=== PATIENT | male | born 1935 | race Hispanic/Latino ===

== ENCOUNTER 2019-09-11 12:37 | Observation (INO) | payer OTHER ==
[2019-09-11] MEDS ORDERED: ceFAZolin/STERILE WATER 2 GM/20 ML SYRINGE IV NR (14:00)
--- NOTE | 2019-09-11 14:21 | Anesthesia Day of Surgery ---
Anesthesia Day of Surgery - Day of Surgery Patient Examined: Yes Patient H&P Reviewed: Yes Patient is NPO: Yes Beta Blockers: Yes (metoprolol 0800) Cardiac Clearance: Yes Pulmonary Clearance: No Shubham's Test: N/A
--- NOTE | 2019-09-11 14:26 | Anesthesia Consultation ---
Anesthesia Consult and Med Hx Date of service: 09/11/19 - Airway Anesthetic Teeth Evaluation: Dentures ROM Head & Neck: Adequate Mental/Hyoid Distance: Adequate Mallampati Class: Class I Intubation Access Assessment: Good - Pulmonary Exam CTA: Yes - Cardiac Exam Cardiac Exam: RRR (very active; s/p fall aug 22 w/ right knee pain, using a cane, o/w very mobile) - Pre-Operative Health Status ASA Pre-Surgery Classification: ASA2 Proposed Anesthetic Plan: General - Pulmonary Hx Smoking: Yes (STOPPED X 40 YRS) Hx Asthma: No Hx Respiratory Symptoms: No SOB: No COPD: No Home Oxygen Therapy: No Hx Pneumonia: No Hx Sleep Apnea: No (CHULA PRE SCREEN HIGH RISK) - Cardiovascular System Hx Hypertension: Yes (X 10 YRS) Hx Coronary Artery Disease: Yes (CABG x 5 in 2004; left CEA 2017) Hx Heart Attack/AMI: No Hx Angina: No Hx Percutaneous Transluminal Coronary Angioplasty (PTCA): No Hx Cardia Arrhythmia: No Hx Pacemaker: No Hx Internal Defibrillator: No Hx Valvular Heart Disease: No Hx Heart Murmur: No Hx Peripheral Vascular Disease: Yes (LEGS- PAIN/WEAKNESS/TIREDNESS WHEN WALKING) - Central Nervous System Hx Neuromuscular Disorder: Yes Hx Seizures: No CVA: No Hx Back Pain: No (L3-L4 about 1.5 -2 years ago) Hx Psychiatric Problems: No - Gastrointestinal Hx Ulcer: No Hx Gastroesophageal Reflux Disease: No - Endocrine Hx Renal Disease: No Hx End Stage Renal Disease: No Hx Cirrhosis: No Hx Liver Disease: No Hx Insulin Dependent Diabetes: No Hx Non-Insulin Dependent Diabetes: Yes Hx Thyroid Disease: No Hx Hypothyroidism: No Hx Hyperthyroidism: No - Hematic Hx Anemia: No Hx Sickle Cell Disease: No - Other Systems Hx Alcohol Use: No Hx Substance Use: No Hx Cancer: No Hx Obesity: No
[2019-09-11 14:40] LABS: Basophils % (Auto) 0.7 % (0.0-1.8); Eosinophils # (Auto) 0.1 K/mm3 (0.0-0.4); Eosinophils % (Auto) 1.7 % (0.0-4.3); Hematocrit 40.5 % (35.5-45.6); Hemoglobin 13.7 gm/dl (11.8-15.2); Lymphocytes # (Auto) 1.6 K/mm3 (1.2-5.4); Lymphocytes % (Auto) 26.4 % (13.4-35.0); Mean Corpuscular HGB Conc 34 % (32-34); Mean Corpuscular Volume 93 fl (84-94); Monocytes # (Auto) 0.4 K/mm3 (0.0-0.8); Monocytes % (Auto) 7.2 % (0.0-7.3); Platelet Count 210 K/mm3 (140-440); Red Blood Count 4.34 M/mm3 (3.65-5.03); Red Cell Distribution Width 14.7 % (13.2-15.2)
[2019-09-11] MEDS ORDERED: SODIUM CHLORIDE 0.9% 1000 ML 1,000 ML ONE ×2 (14:46→18:58)
[2019-09-11 14:54] LABS: BUN/Creatinine Ratio 29; Blood Urea Nitrogen 26 mg/dL (9-20); Hemolysis Index 6
--- NOTE | 2019-09-11 14:57 | Consultation ---
History of Present Illness - Reason for Consult Consult date: 09/11/19 Diabetes Requesting physician: GWENDOLYN HASKINS - History of Present Illness 84-year-old male with HTN, DM, PVD admitted for elective urologic procedure. Consult placed for diabetes mellitus management. Patient resting in bed. Patient denies fever, chills, chest pain, palpitations, headache, or recent ill contacts. No reported nursing events. Patient denies complaints. Past History Past Medical History: diabetes, hypertension, other (See HPI) Past Surgical History: Other (Prostate) Social history: single. denies: smoking, alcohol abuse, prescription drug abuse Family history: diabetes, hypertension Medications and Allergies Allergies Allergy/AdvReac Type Severity Reaction Status Date / Time No Known Allergies Allergy Unverified 08/29/19 12:03 Home Medications Medication Instructions Recorded Confirmed Last Taken Type Alogliptin Benzoate [Alogliptin] 6.25 mg PO DAILY 08/30/19 09/11/19 09/10/19 09:00 History Aspirin [Adult Aspirin] 81 mg PO DAILY 08/30/19 09/11/19 09/04/19 09:00 History Benzonatate [Tessalon Perles] 100 mg PO PRN PRN 08/30/19 08/30/19 Unknown History Cholecalciferol Vit D3 [Vitamin D3 1,000 unit PO QDAY 08/30/19 09/11/19 09/10/19 09:00 History 1,000 UNIT TAB] Empagliflozin [Jardiance] 10 mg PO DAILY 08/30/19 09/11/19 09/10/19 09:00 History Esomeprazole Magnesium [NexIUM] 40 mg PO QDAY 08/30/19 09/11/19 09/10/19 09:00 History Finasteride [Proscar] 5 mg PO QDAY 08/30/19 09/11/19 09/10/19 09:00 History Gabapentin [Neurontin] 100 mg PO PRN PRN 08/30/19 08/30/19 Unknown History Metformin HCl [metFORMIN] 1,000 mg PO BID 08/30/19 09/11/19 09/10/19 17:00 History Metoprolol [Lopressor] 25 mg PO BID 08/30/19 09/11/19 09/11/19 08:00 History Mirtazapine [Remeron 30mg TAB] 30 mg PO QHS 08/30/19 09/11/19 09/10/19 20:00 History Pravastatin [Pravachol] 20 mg PO QHS 08/30/19 09/11/19 09/10/19 20:00 History Tamsulosin [Flomax] 0.8 mg PO QDAY 08/30/19 09/11/19 09/10/19 09:00 History glipiZIDE [Glucotrol] 10 mg PO QDAY 08/30/19 09/11/19 09/10/19 09:00 History lisinopriL [Zestril] 20 mg PO QDAY 08/30/19 09/11/19 09/11/19 08:00 History Active Meds: Active Medications Cefazolin Sodium (Ancef/Sterile Water 2 Gm/20 Ml) 2 gm IV PREOP NR Stop: 09/12/19 13:59 Review of Systems Constitutional: no weight loss, no weight gain, no fever Ears, nose, mouth and throat: no ear pain, no tinnitis, no decreased hearing, no nasal discharge Cardiovascular: no chest pain, no orthopnea, no palpitations, no rapid/irregular heart beat, no syncope, no lightheadedness Gastrointestinal: no abdominal pain, no nausea, no diarrhea, no constipation, no change in bowel habits Genitourinary Male: no dysuria, no hematuria, no flank pain, no discharge, no urinary frequency Rectal: no pain, no incontinence, no bleeding Musculoskeletal: no neck stiffness, no neck pain, no shooting arm pain, no arm numbness/tingling, no low back pain Integumentary: no rash, no sores, no wounds, no jaundice Neurological: no head injury, no paralysis, no parathesias, no seizures, no tremors Psychiatric: no anxiety, no change in sleep habits, no hypersomnia Hematologic/Lymphatic: no easy bruising, no lymphedema Allergic/Immunologic: no urticaria Exam - Constitutional Vitals: Temp Pulse Resp BP Pulse Ox 97.7 F 64 16 186/54 99 09/11/19 13:05 09/11/19 13:05 09/11/19 13:05 09/11/19 13:05 09/11/19 13:05 General appearance: Present: no acute distress, well-nourished - EENT Eyes: Present: PERRL ENT: hearing intact, clear oral mucosa - Neck Neck: Present: supple, normal ROM - Respiratory Respiratory effort: normal Respiratory: bilateral: CTA - Cardiovascular Heart Sounds: Present: S1 & S2. Absent: rub, click - Extremities Extremities: pulses symmetrical, No edema Peripheral Pulses: within normal limits - Abdominal General gastrointestinal: Present: soft, non-tender, non-distended, normal bowel sounds Male genitourinary: Present: normal - Integumentary Integumentary: Present: clear, warm, dry - Musculoskeletal Musculoskeletal: gait normal, strength equal bilaterally - Psychiatric Psychiatric: appropriate mood/affect, intact judgment & insight - Neurologic Neurologic: CNII-XII intact, moves all extremities Results - Labs CBC & Chem 7: 09/11/19 13:40 09/11/19 13:40 Labs: Abnormal lab results 09/11/19 09/11/19 Range/Units 13:40 14:01 BUN 26 H (9-20) mg/dL Glucose 132 H (75-100) mg/dL POC Glucose 131 H (70-105) Assessment and Plan - Patient Problems (1) Diabetes mellitus Current Visit: Yes Status: Acute Plan to address problem: Consistent carbohydrate diet, Accu-Chek, sliding scale insulin therapy, hypoglycemia protocol, discontinue oral antihyperglycemic medication during hospital course and resume at discharge (2) Hypertension Current Visit: Yes Status: Acute Qualifiers: Hypertension type: essential hypertension Qualified Code(s): I10 - Essential (primary) hypertension Plan to address problem: Monitor blood pressure every shift, IV hydralazine every 6 hours as needed for systolic blood pressure greater than 155
[2019-09-11] MEDS ORDERED: dexAMETHasone 20 MG/5 ML VIAL ONE (15:09)
[2019-09-11] MEDS ORDERED: LIDOCAINE MPF (2%) 20 MG/1 ML VIAL 5 ML ONE (15:09)
[2019-09-11] MEDS ORDERED: ONDANSETRON 4 MG/2 ML INJ ONE (15:09)
[2019-09-11] MEDS ORDERED: fentaNYL 100 MCG/2 ML INJ ONE (15:09)
[2019-09-11] MEDS ORDERED: propofoL 200 MG/20 ML VIAL IV ONE (15:09)
[2019-09-11] MEDS ORDERED: SODIUM CHLORIDE 0.9% 1000 ML 1,000 ML IV SCH ×2 (16:00→16:45)
[2019-09-11] MEDS ORDERED: MANNITOL/SORBITOL SOLUTION 3,000 ML IRRIG.SOLN IR ONE (16:22)
[2019-09-11] MEDS ORDERED: SODIUM CHLORIDE 0.9% IRRIG SOLN 2000 ML IR ONE (16:22)
[2019-09-11] MEDS ORDERED: HYDROcodone/ACETAMINOPHEN 5-325 MG TAB PO PRN (16:32)
[2019-09-11] MEDS ORDERED: ZOLPIDEM 5 MG TAB PO PRN (16:32)
[2019-09-11] MEDS ORDERED: MORPHINE 2 MG/1 ML INJ IV PRN (16:32)
[2019-09-11] MEDS ORDERED: ACETAMINOPHEN 325 MG TAB PO PRN (16:32)
[2019-09-11] MEDS ORDERED: DEXTROSE 50% IN WATER (25GM) 50 ML SYRINGE IV PRN ×2 (16:32→16:56)
[2019-09-11] MEDS ORDERED: ONDANSETRON 4 MG/2 ML INJ IV PRN (16:32)
[2019-09-11] MEDS ORDERED: NALOXONE 0.4 MG/1 ML INJ IV PRN (16:32)
--- NOTE | 2019-09-11 16:32 | Short Stay Summary ---
Short Stay Documentation Date of service: 09/11/19 - History H&P: obtained from office - Allergies and Medications Current Medications: Allergies No Known Allergies Allergy (Unverified 08/29/19 12:03) Home Medications Medication Instructions Recorded Confirmed Last Taken Type Alogliptin Benzoate [Alogliptin] 6.25 mg PO DAILY 08/30/19 09/11/19 09/10/19 09:00 History Aspirin [Adult Aspirin] 81 mg PO DAILY 08/30/19 09/11/19 09/04/19 09:00 History Benzonatate [Tessalon Perles] 100 mg PO PRN PRN 08/30/19 08/30/19 Unknown History Cholecalciferol Vit D3 [Vitamin D3 1,000 unit PO QDAY 08/30/19 09/11/19 09/10/19 09:00 History 1,000 UNIT TAB] Empagliflozin [Jardiance] 10 mg PO DAILY 08/30/19 09/11/19 09/10/19 09:00 History Esomeprazole Magnesium [NexIUM] 40 mg PO QDAY 08/30/19 09/11/19 09/10/19 09:00 History Finasteride [Proscar] 5 mg PO QDAY 08/30/19 09/11/19 09/10/19 09:00 History Gabapentin [Neurontin] 100 mg PO PRN PRN 08/30/19 08/30/19 Unknown History Metformin HCl [metFORMIN] 1,000 mg PO BID 08/30/19 09/11/19 09/10/19 17:00 History Metoprolol [Lopressor] 25 mg PO BID 08/30/19 09/11/19 09/11/19 08:00 History Mirtazapine [Remeron 30mg TAB] 30 mg PO QHS 08/30/19 09/11/19 09/10/19 20:00 Hi story Pravastatin [Pravachol] 20 mg PO QHS 08/30/19 09/11/19 09/10/19 20:00 History Tamsulosin [Flomax] 0.8 mg PO QDAY 08/30/19 09/11/19 09/10/19 09:00 History glipiZIDE [Glucotrol] 10 mg PO QDAY 08/30/19 09/11/19 09/10/19 09:00 History lisinopriL [Zestril] 20 mg PO QDAY 08/30/19 09/11/19 09/11/19 08:00 History Active Medications Cefazolin Sodium (Ancef/Sterile Water 2 Gm/20 Ml) 2 gm IV PREOP NR Stop: 09/12/19 13:59 Sodium Chloride (Nacl 0.9% 1000 Ml) 1,000 mls @ 75 mls/hr IV DIRECT LON Last Admin: 09/11/19 15:00 Dose: 75 mls/hr Documented by: - Brief post op/procedure progress note Date of procedure: 09/11/19 Pre-op diagnosis: bph, retention Post-op diagnosis: same Procedure: cysto, rpg, TUR median lobe, greenlight laser of prostate Anesthesia: DENICEA Surgeon: GWENDOLYN HASKINS Estimated blood loss: minimal Pathology: none Condition: stable - Hospital course Hospital course: macrobid , ultram, norco on chart resting well, sotelo pink tinged spoke with Drs. Love & Vale - Disposition Condition at discharge: Stable Disposition: DC-01 TO HOME OR SELFCARE Short Stay Discharge Plan Follow up with: [facility] [Primary Care Provider] - 7 Days
[2019-09-11] MEDS ORDERED: GABAPENTIN 100 MG CAP PO PRN (16:37)
[2019-09-11] MEDS ORDERED: BENZONATATE 100 MG CAP PO PRN (16:37)
--- NOTE | 2019-09-11 16:37 | Fluoroscopy Report ---
FL retrograde urography INDICATION / CLINICAL INFORMATION: ENLARGED PROSTATE. COMPARISON: None available. FINDINGS: Bilateral retrograde ureterography was performed. The ureters and collecting systems are unremarkable . Fluoroscopy time: 6 seconds. Fluoroscopic images: 6. Signer Name: Omkar Craig MD Signed: 09/11/2019 4:33 PM Workstation Name: [id number]
[2019-09-11] MEDS ORDERED: hydrALAZINE 20 MG/1 ML INJ IV PRN ×2 (16:50→20:56)
[2019-09-11] MEDS ORDERED: SODIUM CHLORIDE IRRI 1000 ML 1,000 ML IR ONE (17:10)
[2019-09-11] MEDS: HYDROmorphone 1 MG/1 ML INJ IV PRN ×2 (17:55→19:25)
[2019-09-11] MEDS ORDERED: SODIUM CHLORIDE IRRI 2000 ML 4,000 ML ONE (18:40)
--- NOTE | 2019-09-11 19:06 | Event Note ---
Date: 09/11/[address] Rodriguez for PVCS postoperatively. RV states that PVCs are very rare and patient is asymptomatic. ECG reviewed showing no acute findings. Potassium within normal limits. Resume metoprolol. No further cardiac intervention is needed.
[2019-09-11] MEDS ORDERED: SODIUM CHLORIDE IRRI 2000 ML 6,000 ML ONE (19:38)
--- NOTE | 2019-09-11 21:14 | Operative Report ---
PREOPERATIVE DIAGNOSES: Urinary retention, benign prostatic hypertrophy. POSTOPERATIVE DIAGNOSES: Urinary retention, benign prostatic hypertrophy. PROCEDURE: Cystoscopy, bilateral retrograde pyelograms, transurethral resection of median lobe. GreenLight laser ablation of prostate. SURGEON: Khang Rodriguez MD. ANESTHESIA: General. ESTIMATED BLOOD LOSS: Minimal. FLUIDS: Crystalloid. COMPLICATIONS: No complications. INDICATIONS: This patient is an 84-year-old gentleman seen in the office with voiding dysfunction. 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 Peak flow rate of 8 mL per second and a post-void was residual of 135 mL. We discussed treatment options. The patient agreed to proceed with surgical intervention. DESCRIPTION OF PROCEDURE: The patient was taken to the operative suite, placed in a supine position. After adequate general anesthesia, placed in a dorsal lithotomy position, prepped and draped in a sterile fashion. Pancystourethroscopy was performed with a 22-Iraqi Storz cystoscope, no urethral abnormalities. His prostate displayed moderate trilobar obstruction. Bladder, no tumors or stones were noted. Had diffuse trabeculation. Bilateral retrograde pyelograms were obtained with an 8-Iraqi Fisher catheter and 8 mL of contrast. No filling defects or obstruction. Next, using a 24-Iraqi resectoscope and loop with the cutting and coag on 160 and 60, transurethral resection of the median lobe was performed creating a trough. The chips were evacuated out with the Nilesh evacuator. Next, using a MoXy GreenLight fiber with initial settings on 80, vaporization of the lateral lobes were performed without difficulty, creating clear channel. I increased the booth up to 120, total joules of 49,960. The patient tolerated the procedure well. A 22-Iraqi 3-way catheter was placed. Site port was plugged. [place]-tinged urine could be appreciated. The patient tolerated the procedure well and was extubated and taken to recovery room in stable condition. JOB# [id number] Norman/LACEY
[2019-09-11] MEDS: ceFAZolin/NS 1 GM/50 ML 1 GM/50 ML BAG IV SCH (21:22)
[2019-09-11] MEDS: metFORMIN 500 MG TAB PO SCH (21:46)
[2019-09-11] MEDS: METOPROLOL TARTRATE 25 MG TAB PO SCH (21:47)
[2019-09-11] MEDS: INSULIN REGULAR, HUMAN 100 UNITS/1 ML SUB-Q SCH (21:47)
[2019-09-11] MEDS: INSULIN LISPRO 100 UNIT/ML SUB-Q SCH (21:52)
[2019-09-11] MEDS ORDERED: PRAVASTATIN 20 MG TAB PO SCH (22:00)
[2019-09-11] MEDS ORDERED: MIRTAZAPINE 30 MG TAB PO SCH (22:00)
[2019-09-11] MEDS ORDERED: NON-FORMULARY EACH (Metformin Hcl [Metformin] 1,000 MG) PO SCH (22:00)
[2019-09-11] MEDS: SODIUM CHLORIDE 0.9% IRRIG SOLN 2000 ML IR SCH ×2 (23:11→23:13)
[2019-09-12] MEDS: SODIUM CHLORIDE 0.9% IRRIG SOLN 2000 ML IR SCH ×7 (00:30→07:08)
[2019-09-12] MEDS: INSULIN LISPRO 100 UNIT/ML SUB-Q SCH ×3 (02:14→14:15)
[2019-09-12] MEDS: ceFAZolin/NS 1 GM/50 ML 1 GM/50 ML BAG IV SCH (02:17)
[2019-09-12] MEDS: INSULIN REGULAR, HUMAN 100 UNITS/1 ML SUB-Q SCH ×2 (07:04→08:05)
[2019-09-12 07:35] LABS: Basophils # (Auto) 0.1 K/mm3 (0.0-0.1); Basophils % (Auto) 0.6 % (0.0-1.8); Eosinophils % (Auto) 0.1 % (0.0-4.3); Hematocrit 40.6 % (35.5-45.6); Hemoglobin 13.4 gm/dl (11.8-15.2); Lymphocytes % (Auto) 10.2 % (13.4-35.0); Mean Corpuscular HGB Conc 33 % (32-34); Mean Corpuscular Volume 95 fl (84-94); Monocytes # (Auto) 0.5 K/mm3 (0.0-0.8); Monocytes % (Auto) 5.6 % (0.0-7.3); Platelet Count 193 K/mm3 (140-440); Red Blood Count 4.27 M/mm3 (3.65-5.03); Red Cell Distribution Width 14.7 % (13.2-15.2)
[2019-09-12 07:48] LABS: Calcium 8.8 mg/dL (8.4-10.2)
[2019-09-12] MEDS: metFORMIN 500 MG TAB PO SCH (09:25)
[2019-09-12] MEDS: METOPROLOL TARTRATE 25 MG TAB PO SCH (09:26)
[2019-09-12] MEDS ORDERED: CHOLECALCIFEROL (VIT D3) 1000 UNIT (25 mcg) TAB PO SCH (10:00)
[2019-09-12] MEDS ORDERED: NON-FORMULARY EACH (Esomeprazole Magnesium [Nexium] 40 MG) PO SCH (10:00)
[2019-09-12] MEDS ORDERED: glipiZIDE 10 MG TAB PO SCH (10:00)
[2019-09-12] MEDS ORDERED: EMPAGLIFLOZIN 10 MG PO SCH (10:00)
[2019-09-12] MEDS ORDERED: FINASTERIDE 5 MG TAB PO SCH (10:00)
[2019-09-12] MEDS ORDERED: PANTOPRAZOLE 40 MG TAB PO SCH (10:00)
[2019-09-12] MEDS ORDERED: LISINOPRIL 20 MG TAB PO SCH (10:00)
[2019-09-12] MEDS ORDERED: ALOGLIPTIN BENZOATE 6.25 MG PO SCH (10:00)
[2019-09-12] MEDS ORDERED: TAMSULOSIN 0.4 MG CAP PO SCH (10:00)
--- NOTE | 2019-09-12 11:06 | Progress Note ---
Assessment and Plan status post urology procedure SR with occasional PVCs on telemetry pt remains asymptomatic Hx of CAD with remote CABG normal perfusion MPI 09/2018 Hypertension Diabetes Recommendations: post operative 12 lead ECG. Continue beta blockers for suppression of occasional PVCs. Continue medical therapy for coronary artery disease. Stable cardiac lopes. Subjective Date of service: 09/12/19 Interval history: Patient is status post urology procedure. He denies chest pain, shortness of breath and palpitations. Sinus rhythm with occasional PVCs seen on telemetry overnight. Patient remained asymptomatic. Objective Vital Signs Temp Pulse Resp BP BP Pulse Ox 09/12/19 09:25 63 147/55 09/12/19 08:00 98.9 F 63 18 142/55 96 09/12/19 04:31 97.4 F L 53 L 20 106/41 96 09/11/19 20:02 97.5 F L 20 143/44 09/11/19 20:00 97.4 F L 81 20 143/64 99 09/11/19 19:55 18 09/11/19 19:35 97.8 F 84 15 157/78 99 09/11/19 19:25 14 09/11/19 19:20 81 14 170/64 98 09/11/19 19:05 77 15 161/63 98 09/11/19 18:50 78 14 155/59 98 09/11/19 18:35 97.5 F L 78 13 123/63 98 09/11/19 18:25 14 09/11/19 18:20 73 14 141/57 100 09/11/19 18:05 72 14 132/49 100 09/11/19 17:55 12 09/11/19 17:50 76 14 135/46 100 09/11/19 17:35 97.4 F L 70 14 121/49 99 09/11/19 17:20 58 L 14 100/43 100 09/11/19 17:05 67 14 138/40 99 09/11/19 16:55 68 186/72 09/11/19 16:50 65 14 186/72 100 09/11/19 16:45 65 14 188/71 100 09/11/19 16:40 64 14 184/55 98 09/11/19 16:38 98.0 F 70 12 180/48 99 09/11/19 13:30 97.7 F 64 16 186/54 99 09/11/19 13:05 97.7 F 64 16 99 - Physical Examination General: No Apparent Distress HEENT: Positive: PERRL Neck: Positive: trachea midline Cardiac: Positive: Reg Rate and Rhythm Lungs: Positive: Decreased Breath Sounds Neuro: Positive: Grossly Intact - Labs and Meds CBC 09/11/19 09/12/19 Range/Units 13:40 07:22 WBC 6.2 9.5 (4.5-11.0) K/mm3 RBC 4.34 4.27 (3.65-5.03) M/mm3 Hgb 13.7 13.4 (11.8-15.2) gm/dl Hct 40.5 40.6 (35.5-45.6) % Plt Count 210 193 (140-440) K/mm3 Lymph # 1.6 1.0 L (1.2-5.4) K/mm3 [place] # 0.4 0.5 (0.0-0.8) K/mm3 Eos # 0.1 0.0 (0.0-0.4) K/mm3 Baso # 0.0 0.1 (0.0-0.1) K/mm3 Comprehensive Metabolic Panel 09/11/19 09/12/19 Range/Units 13:40 07:22 Sodium 142 138 (137-145) mmol/L Potassium 4.6 4.9 (3.6-5.0) mmol/L Chloride 102.4 104.1 (98-107) mmol/L Carbon Dioxide 27 21 L (22-30) mmol/L BUN 26 H 31 H (9-20) mg/dL Creatinine 0.9 1.2 (0.8-1.5) mg/dL Glucose 132 H 247 H (75-100) mg/dL Calcium 10.0 8.8 (8.4-10.2) mg/dL
[2019-09-12 12:43] VITALS: BP 136/49
--- NOTE | 2019-09-12 13:40 | Progress Note ---
Assessment and Plan Assessment and plan: Diabetes mellitus type 2. Continue consistent carbohydrate diet, Accu-Cheks and sliding scale insulin. Will add low-dose Lantus. Hypertension. Continue antihypertensive medications. Occasional PVCs. Cardiology consulted. Continue beta-shweta History Interval history: No new issues overnight. Hospitalist Physical - Constitutional Vitals: Temp Pulse Resp BP Pulse Ox 97.5 F L 55 L 18 136/49 96 09/12/19 11:57 09/12/19 11:57 09/12/19 11:57 09/12/19 11:57 09/12/19 11:57 General appearance: Present: no acute distress, well-nourished - EENT Eyes: Present: PERRL, EOM intact ENT: hearing intact, clear oral mucosa, dentition normal - Neck Neck: Present: supple, normal ROM - Respiratory Respiratory effort: normal Respiratory: bilateral: CTA - Cardiovascular Rhythm: regular Heart Sounds: Present: S1 & S2. Absent: gallop, rub - Extremities Extremities: no ischemia, No edema, Full ROM - Abdominal General gastrointestinal: soft, non-tender, non-distended, normal bowel sounds - Integumentary Integumentary: Present: clear, warm, dry - Neurologic Neurologic: CNII-XII intact, moves all extremities Results - Labs CBC & Chem 7: 09/12/19 07:22 09/12/19 07:22 Labs: Laboratory Last Values WBC 9.5 K/mm3 (4.5-11.0) 09/12/19 07:22 RBC 4.27 M/mm3 (3.65-5.03) 09/12/19 07:22 Hgb 13.4 gm/dl (11.8-15.2) 09/12/19 07:22 Hct 40.6 % (35.5-45.6) 09/12/19 07:22 MCV 95 fl (84-94) H 09/12/19 07:22 MCH 31 pg (28-32) 09/12/19 07:22 MCHC 33 % (32-34) 09/12/19 07:22 RDW 14.7 % (13.2-15.2) 09/12/19 07:22 Plt Count 193 K/mm3 (140-440) 09/12/19 07:22 Lymph % (Auto) 10.2 % (13.4-35.0) L 09/12/19 07:22 Dukes % (Auto) 5.6 % (0.0-7.3) 09/12/19 07:22 Eos % (Auto) 0.1 % (0.0-4.3) 09/12/19 07:22 Baso % (Auto) 0.6 % (0.0-1.8) 09/12/19 07:22 Lymph # 1.0 K/mm3 (1.2-5.4) L 09/12/19 07:22 Dukes # 0.5 K/mm3 (0.0-0.8) 09/12/19 07:22 Eos # 0.0 K/mm3 (0.0-0.4) 09/12/19 07: Baso # 0.1 K/mm3 (0.0-0.1) 09/12/19 07:22 Seg Neutrophils % 83.5 % (40.0-70.0) H 09/12/19 07:22 Seg Neutrophils # 7.9 K/mm3 (1.8-7.7) H 09/12/19 07:22 Sodium 138 mmol/L (137-145) 09/12/19 07:22 Potassium 4.9 mmol/L (3.6-5.0) 09/12/19 07:22 Chloride 104.1 mmol/L (98-107) 09/12/19 07:22 Carbon Dioxide 21 mmol/L (22-30) L 09/12/19 07:22 Anion Gap 18 mmol/L 09/12/19 07:22 BUN 31 mg/dL (9-20) H 09/12/19 07:22 Creatinine 1.2 mg/dL (0.8-1.5) 09/12/19 07:22 Estimated GFR 58 ml/min 09/12/19 07:22 BUN/Creatinine Ratio 26 % 09/12/19 07:22 Glucose 247 mg/dL (75-100) H 09/12/19 07:22 POC Glucose 243 (70-105) H 09/12/19 11:58 Calcium 8.8 mg/dL (8.4-10.2) 09/12/19 07:22 Blood Type A NEGATIVE 09/11/19 13:40 Antibody Screen Negative 09/11/19 13:40 Active Medications - Current Medications Current Medications: Generic Name Dose Route Start Last Admin Trade Name Freq PRN Reason Stop Dose Admin Acetaminophen 650 mg 09/11/19 16:32 Tylenol PO Q4H PRN Pain, Mild (1-3)/Fever > 100.5 Acetaminophen/Hydrocodone Bitart 2 each 09/11/19 16:32 09/12/19 07:14 [place] 5/325 PO 2 each Q4H PRN Administration Pain, Moderate (4-6) Benzonatate 100 mg 09/11/19 16:37 Tessalon Perles PO PRN PRN Cough Cefazolin Sodium 2 gm 09/11/19 14:00 Ancef/Sterile Water 2 Gm/20 Ml IV 09/12/19 13:59 PREOP NR Cholecalciferol 1,000 unit 09/12/19 10:00 09/12/19 09:26 Vitamin D3 PO 1,000 unit QDAY LON Administration Dextrose 50 ml 09/11/19 16:56 D50w (25gm) Syringe IV Q30MIN PRN Hypoglycemia Protocol Finasteride 5 mg 09/12/19 10:00 Proscar PO QDAY LON Gabapentin 100 mg 09/11/19 16:37 Gabapentin PO PRN PRN Pain, Mild (1-3) Hydralazine HCl 20 mg 09/11/19 20:56 Apresoline IV Q6HR PRN Hypertension Hydromorphone HCl 0.25 mg 09/11/19 17:53 09/11/19 19:25 Dilaudid IV 09/12/19 17:52 0.25 mg Q10MIN PRN Administration Pain, Moderate (4-6) Sodium Chloride 1,000 mls @ 75 mls/hr 09/11/19 16:45 Nacl 0.9% 1000 Ml IV DIRECT LON Insulin Human Lispro 0 unit 09/11/19 18:00 09/12/19 07:05 Humalog SUB-Q 2 unit Q6HR LON Administration Protocol Lisinopril 20 mg 09/12/19 10:00 09/12/19 09:25 Zestril PO 20 mg QDAY LON Administration Metformin HCl 1,000 mg 09/11/19 22:00 09/12/19 09:25 Glucophage PO 1,000 mg BID LON Administration Metoprolol Tartrate 25 mg 09/11/19 22:00 09/12/19 09:26 Metoprolol PO 25 mg BID LON Administration Mirtazapine 30 mg 09/11/19 22:00 09/11/19 23:08 Remeron PO 30 mg QHS LON Administration Morphine Sulfate 2 mg 09/11/19 16:32 Morphine IV Q4H PRN Pain, Moderate (4-6) Naloxone HCl 0.1 mg 09/11/19 16:32 Naloxone IV Q2MIN PRN Res Rate </= 8 or 02 SAT < 92% Ondansetron HCl 4 mg 09/11/19 16:32 09/12/19 07:36 Zofran IV 4 mg Q8H PRN Administration Nausea And Vomiting Pantoprazole Sodium 40 mg 09/12/19 10:00 09/12/19 09:33 Protonix PO 40 mg DAILY LON Administration Pravastatin Sodium 20 mg 09/11/19 22:00 09/11/19 21:47 Pravachol PO 20 mg QHS LON Administration Sodium Chloride 2,000 ml 09/11/19 22:00 09/12/19 07:08 Nacl 0.9% IR 2,000 ml DIRECT LON Administration Tamsulosin HCl 0.8 mg 09/12/19 10:00 09/12/19 09:25 Flomax PO 0.8 mg QDAY LON Administration Zolpidem Tartrate 5 mg 09/11/19 16:32 Ambien PO QHS PRN Sleep
== END 2019-09-12 16:13 | disposition home or self-care (01) ==
LOC: OR 12:37 → 3A 16:32 → 3B-SURG 19:31
PROVIDERS: ADMIT Urology; ATTEND Urology
DX: N40.1 Benign prostatic hyperplasia with lower urinary tract symptoms (principal); I10 Essential (primary) hypertension; E11.9 Type 2 diabetes mellitus without complications; I25.10 Atherosclerotic heart disease of native coronary artery without angina pectoris; Z95.1 Presence of aortocoronary bypass graft; Z79.899 Other long term (current) drug therapy
CPT/HCPCS: 36415; 52648; 74420; 80048; 82962; 85025; 86850; 86900; 86901; 88305; 93005; 93010; 96365; 96372; 96375; 96376; A4217; A9270; C1758; G0378; J0360; J0690; J1100; J1170; J2405; J2704; J3010; J7030; Q9967; J1815